=== PATIENT | female | born 1935 | race Caucasian/White ===

== ENCOUNTER 2018-01-08 22:00 | Inpatient (IN) | payer MEDICARE ==
[~2018-01-08] VITALS: Ht 154.9 cm; Wt 47.2 kg
[2018-01-08] MEDS ORDERED: TYLENOL 325MG325 MG PO (22:18)
[2018-01-08] MEDS ORDERED: ASPERCREME85G TP (22:19)
[2018-01-08] MEDS ORDERED: ASPIRIN 81M81 MG/TA2 PO (22:20)
[2018-01-08] MEDS ORDERED: DULCOLAX S10 MG/SUPP RC (22:21)
[2018-01-08] MEDS ORDERED: COMBIRESP IH (22:22)
[2018-01-08] MEDS ORDERED: ROBITUSSIN DM 105 ML PO (22:25)
[2018-01-08] MEDS ORDERED: COLACE 100100 MG/CAP PO ×2 (22:26→22:27)
[2018-01-08] MEDS ORDERED: EFFEXOR-XR150 MG PO (22:27)
[2018-01-08] MEDS ORDERED: IPRATROPIUM BROM3 M1 IH (22:29)
[2018-01-08] MEDS ORDERED: MIRALAX PA17 GM/Dose PO (22:30)
[2018-01-08] MEDS ORDERED: PLAVIX 75MG TAB75 MG PO (22:31)
[2018-01-08] MEDS ORDERED: NAPROSYN 2250 MG/TAB PO (22:32)
[2018-01-08] MEDS ORDERED: LASIX 40MG TABL40 MG (22:32)
[2018-01-08 22:41] VITALS: BP 142/87; PULSE 94; TEMP 98.4
[2018-01-08 22:52] LABS: ARTERIAL BLD GAS O2 SATURATION 96.3 % (92-100); ARTERIAL BLD GAS TCO2 CT 30.6; ARTERIAL BLOOD GAS BASE EXCESS 4.5 (-2-2); ARTERIAL BLOOD GAS HCO3 29.2 meq/L (22-26); ARTERIAL BLOOD GAS PCO2 44.5 mmHg (35-45); ARTERIAL BLOOD GAS PO2 94.8 mmHg (80-100); ARTERIAL BLOOD GAS pH 7.44 (7.35-7.45)
[2018-01-08 23:51] LABS: BASO % 0.1 % (0.0-2.0); EOS % 0.1 % (0-4.0); GRAN # 13.8 (1.4-6.5); GRAN % 86.9 % (42.2-75.2); HEMATOCRIT 21.8 % (37.0-47.0); LYMPH % 6.1 % (20.0-51.0); MEAN CELL VOLUME 87 fl (80.0-100.0); MEAN CORPUSCULAR HEMOGLOBIN 27 pg (27.0-31.0); MEAN CORPUSCULAR HGB CONC 32 g/dl (33.0-37.0); MEAN PLATELET VOLUME 8.9 fl (7.4-10.4); MONO % 6.4 % (1.7-9.3); PLATELET COUNT 413 K/mm3 (130-400); RED BLOOD COUNT 2.52 M/mm3 (4.10-5.30)
[2018-01-08 23:52] LABS: HEMOGLOBIN 6.9 g/dl (12.5-16.0)
[2018-01-08 23:56] LABS: INR 1.1 (0.8-3.0); PROTHROMBIN TIME 12.4 SECONDS (9.7-12.8)
[2018-01-08 23:59] LABS: ALBUMIN 2.8 gm/dL (3.5-5.0); BILIRUBIN,TOTAL 0.5 mg/dL (0.0-1.0); CALCIUM 8.2 mg/dL (8.4-10.2); CREATININE, serum 0.73 mg/dL (0.52-1.25); POTASSIUM 3.5 mmol/L (3.4-5.0); TOTAL PROTEIN 6.1 gm/dL (6.4-8.2)
[2018-01-09] VITALS (9 sets, daily range): BP systolic 98–128; BP diastolic 52–70; PULSE 79–89; TEMP 97.6–98.2
[2018-01-09 00:06] LABS: PRE ALBUMIN 10.4 mg/dL (17.6-36.0)
[2018-01-09 01:20] LABS: MUCOUS Present /lpf; PH 6 (5-8); SQUAMOUS EPITHELIAL 0-2 /hpf; URINE APPEARANCE Clear; URINE BACTERIA None Seen /hpf; URINE BILIRUBIN Negative (NEGATIVE); URINE BLOOD Negative (NEGATIVE); URINE COLOR Yellow; URINE GLUCOSE Negative (NEGATIVE); URINE KETONE Negative (NEGATIVE); URINE LEUKOCYTE ESTERASE Negative (NEGATIVE); URINE NITRATE Negative (NEGATIVE); URINE PROTEIN(semi-quant) Negative (NEGATIVE); URINE RBC 0-2 /hpf; URINE UROBILINOGEN >=4.0 mg/dL (NEGATIVE)
[2018-01-09 01:24] LABS: COLLECTION METHOD CLEAN CATCH
[2018-01-09 08:10] LABS: HEMOGLOBIN 8.2 g/dl (12.5-16.0)
[2018-01-09 08:19] LABS: CALCIUM 7.9 mg/dL (8.4-10.2); CREATININE, serum 0.75 mg/dL (0.52-1.25); POTASSIUM 3.5 mmol/L (3.4-5.0)
[2018-01-09 12:25] LABS: HEMATOCRIT 26.6 % (37.0-47.0); HEMOGLOBIN 8.5 g/dl (12.5-16.0)
[2018-01-09 12:36] LABS: PARTIAL THROMBOPLASTIN TIME 32.4 SECONDS (26.0-37.0)
[2018-01-09 18:46] LABS: HEMATOCRIT 25.2 % (37.0-47.0); HEMOGLOBIN 8.1 g/dl (12.5-16.0)
[2018-01-10] VITALS (17 sets, daily range): BP systolic 103–130; BP diastolic 53–89; PULSE 58–103; TEMP 98–99.5
[2018-01-10 00:02] LABS: HEMATOCRIT 26.6 % (37.0-47.0); HEMOGLOBIN 8.4 g/dl (12.5-16.0)
[2018-01-10 08:09] LABS: HEMATOCRIT 24.5 % (37.0-47.0); HEMOGLOBIN 7.6 g/dl (12.5-16.0)
[2018-01-10 08:23] LABS: CALCIUM 7.4 mg/dL (8.4-10.2); CREATININE, serum 0.68 mg/dL (0.52-1.25)
[2018-01-10 11:50] LABS: HEMOGLOBIN 7.6 g/dl (12.5-16.0)
[2018-01-10 18:15] LABS: HEMATOCRIT 21.4 % (37.0-47.0); HEMOGLOBIN 6.6 g/dl (12.5-16.0)
[2018-01-10 23:35] LABS: HEMOGLOBIN 9.7 g/dl (12.5-16.0)
[2018-01-10 23:36] LABS: HEMATOCRIT 29.3 % (37.0-47.0)
[2018-01-11] VITALS: BP 137/70; PULSE 102; TEMP 98.1
[2018-01-11 05:15] VITALS: BP 134/70; PULSE 76; TEMP 98.4
[2018-01-11 07:58] LABS: BASO % 0.2 % (0.0-2.0); EOS # 0.1 (0.0-0.7); EOS % 0.4 % (0-4.0); LYMPH # 1.3 (1.2-3.4); LYMPH % 11.7 % (20.0-51.0); MEAN CELL VOLUME 87 fl (80.0-100.0); MEAN CORPUSCULAR HGB CONC 32 g/dl (33.0-37.0); MEAN PLATELET VOLUME 9.2 fl (7.4-10.4); MONO # 0.8 (0.1-0.6); MONO % 7.2 % (1.7-9.3); RED BLOOD COUNT 2.86 M/mm3 (4.10-5.30); REDCELL DISTRIBUTION WIDTH-CV 15.1 % (11.5-14.5)
[2018-01-11 08:00] LABS: HEMATOCRIT 24.8 % (37.0-47.0); HEMOGLOBIN 7.9 g/dl (12.5-16.0); MEAN CORPUSCULAR HEMOGLOBIN 28 pg (27.0-31.0); PLATELET COUNT 298 K/mm3 (130-400)
[2018-01-11 08:05] VITALS: BP 130/61; PULSE 70; TEMP 98
[2018-01-11 11:46] LABS: CALCIUM 7.3 mg/dL (8.4-10.2); CREATININE, serum 0.63 mg/dL (0.52-1.25); POTASSIUM 3.9 mmol/L (3.4-5.0)
[2018-01-11 12:55] VITALS: BP 103/57; PULSE 73; TEMP 97.8
[2018-01-11 15:53] VITALS: BP 112/57; PULSE 100; TEMP 98.2
[2018-01-11 20:25] VITALS: BP 137/66; PULSE 102; TEMP 98.4
[2018-01-12 04:13] VITALS: BP 150/65; PULSE 102; TEMP 98.1
[2018-01-12 07:11] VITALS: BP 155/82; PULSE 91; TEMP 98.4
[2018-01-12 07:30] LABS: HEMOGLOBIN 8.8 g/dl (12.5-16.0)
[2018-01-12 07:41] LABS: BASO % 0.3 % (0.0-2.0); EOS # 0.2 (0.0-0.7); EOS % 1.8 % (0-4.0); GRAN # 9.3 (1.4-6.5); GRAN % 80.7 % (42.2-75.2); LYMPH # 1.1 (1.2-3.4); LYMPH % 9.6 % (20.0-51.0); MEAN CELL VOLUME 89 fl (80.0-100.0); MEAN CORPUSCULAR HGB CONC 33 g/dl (33.0-37.0); MONO # 0.8 (0.1-0.6); MONO % 7.3 % (1.7-9.3); PLATELET COUNT 339 K/mm3 (130-400); RED BLOOD COUNT 3.06 M/mm3 (4.10-5.30); REDCELL DISTRIBUTION WIDTH-CV 15.7 % (11.5-14.5)
[2018-01-12 07:42] LABS: HEMATOCRIT 27.2 % (37.0-47.0); HEMOGLOBIN 8.9 g/dl (12.5-16.0); MEAN CORPUSCULAR HEMOGLOBIN 29 pg (27.0-31.0)
[2018-01-12 07:50] LABS: CREATININE, serum 0.62 mg/dL (0.52-1.25); POTASSIUM 3.6 mmol/L (3.4-5.0)
[2018-01-12 10:21] VITALS: BP 155/82; PULSE 91; TEMP 98.4
[2018-01-12] MEDS ORDERED: ASPIRIN 32325 MG/TAB PO (10:23)
[2018-01-12] MEDS ORDERED: NORCO 325 MG-51 TAB PO (10:24)
[2018-01-12] MEDS ORDERED: LEVAQUIN 5500 MG/TA1 PO (10:28)
== END 2018-01-12 12:30 | DRG 480 ==
LOC: SURG 22:00
PROVIDERS: Hospitalist; Nurse Practitioner Family; Orthopaedic Surgery Sports Medicine; Physician Assistant
PROC: 0QH634Z Insertion of Internal Fixation Device into Right Upper Femur, Percutaneous Approach (ICD-10-PCS; principal; 2018-01-10 16:00)
DX: S72.141A Displaced intertrochanteric fracture of right femur, initial encounter for closed fracture (principal); J18.9 Pneumonia, unspecified organism; E87.1 Hypo-osmolality and hyponatremia; Z66 Do not resuscitate; D62 Acute posthemorrhagic anemia; I50.32 Chronic diastolic (congestive) heart failure; E44.0 Moderate protein-calorie malnutrition; Z68.1 Body mass index [BMI] 19.9 or less, adult; J44.9 Chronic obstructive pulmonary disease, unspecified; F03.90 Unspecified dementia, unspecified severity, without behavioral disturbance, psychotic disturbance, mood disturbance, and anxiety; Z87.891 Personal history of nicotine dependence; Z86.73 Personal history of transient ischemic attack (TIA), and cerebral infarction without residual deficits; Z79.01 Long term (current) use of anticoagulants; E87.6 Hypokalemia; I71.4 Abdominal aortic aneurysm, without rupture; W18.30XA Fall on same level, unspecified, initial encounter
CPT/HCPCS: 99223-AI; 99232-AI; 99233-AI; 99239; A9284; C1713; J0456; J0690; J0696; J1644; J1650; J2270; J2405; J2704; J2710; J3010; J3480; J7040; J7042; J7050; J7121; P9016; P9035